=== PATIENT | male | born 1995 | race Caucasian/White ===

== ENCOUNTER 2019-10-31 12:32 | Inpatient (IN) | payer BC, OTHER ==
--- NOTE | 2019-10-31 12:59 | ED ---
General Adult HPI - General Chief complaint: Psychiatric Symptoms Stated complaint: mental health Time Seen by Provider: 10/31/19 12:35 Source: patient, police, EMS, RN notes reviewed, old records reviewed Mode of arrival: EMS Limitations: no limitations - History of Present Illness Initial comments: This is a 24-year-old male who presents emergency Department in the custody of the lesley. According to the patient made some welsh to the parents about potentially harming some other people if they had a PPO against him patient denies wanting to kill anyone he does state he wanted to punch anyone if they came to the house and try to make him leave.. Patient states he is not suicidal or homicidal. Patient denies any physical complaints today. Patient states he does to methamphetamine occasionally but does not drink and does do marijuana occasionally. - Related Data Home Medications Medication Instructions Recorded Confirmed No Known Home Medications 10/31/19 10/31/19 Allergies Allergy/AdvReac Type Severity Reaction Status Date / Time No Known Allergies Allergy Verified 10/31/19 14:19 Review of Systems ROS Statement: Those systems with pertinent positive or pertinent negative responses have been documented in the HPI. ROS Other: All systems not noted in ROS Statement are negative. Past Medical History Past Medical History: No Reported History History of Any Multi-Drug Resistant Organisms: None Reported Past Surgical History: Back Surgery Past Psychological History: No Psychological Hx Reported Smoking Status: Current every day smoker Past Alcohol Use History: None Reported Past Drug Use History: Marijuana, Methamphetamine General Exam - General Exam Comments Initial Comments: GENERAL: Patient is well-developed and well-nourished. Patient is nontoxic and well- hydrated and is in no acute distress ENT: Neck is soft and supple. No significant lymphadenopathy is noted. Oropharynx is clear. Moist mucous membranes. Neck has full range of motion without eliciting any pain. EYES: The sclera were anicteric and conjunctiva were pink and moist. Extraocular movements were intact and pupils were equal round and reactive to light. Eyelids were unremarkable. PULMONARY: Unlabored respirations. Good breath sounds bilaterally. No audible rales rhonchi or wheezing was noted. CARDIOVASCULAR: There is a regular rate and rhythm without any murmurs gallops or rubs. ABDOMEN: Soft and nontender with normal bowel sounds. SKIN: Skin is clear with no lesions or rashes and otherwise unremarkable. NEUROLOGIC: Patient is alert and oriented x3. Cranial nerves II through XII are grossly intact. Motor and sensory are also intact. Normal speech, volume and content. Symmetrical smile. MUSCULOSKELETAL: Normal extremities with adequate strength and full range of motion. LYMPHATICS: No significant lymphadenopathy is noted PSYCHIATRIC: Patient denies suicidal or homicidal ideations. Patient states he was in an argument with his parents and mom had threatened to take away his dog and kicked multiple house in the argument escalated. There was no physical violence according to the patient. Limitations: no limitations Course Vital Signs 10/31/19 12:34 Temperature 98.0 F Pulse Rate 110 H Respiratory 20 Rate Blood Pressure 151/84 O2 Sat by Pulse 100 Oximetry Medical Decision Making - Medical Decision Making Patient's parents came in and indicated that patient had talked about hanging himself and he also stated that if the please ever came he would start stacking of their bodies. Patient also told the friend that he was given kill himself. Patient's petition by his parents I filled out a clinical certification to keep the patient - Lab Data Lab Results 10/31/19 Range/Units 14:22 Urine Opiates Screen Not Detected (NotDetected) Ur Oxycodone Screen Not Detected (NotDetected) Urine Methadone Screen Not Detected (NotDetected) Ur Propoxyphene Screen Not Detected (NotDetected) Ur Barbiturates Screen Not Detected (NotDetected) U Tricyclic Antidepress Not Detected (NotDetected) Ur Phencyclidine Scrn Not Detected (NotDetected) Ur Amphetamines Screen Detected H (NotDetected) U Methamphetamines Scrn Not Detected (NotDetected) U Benzodiazepines Scrn Not Detected (NotDetected) Urine Cocaine Screen Not Detected (NotDetected) U Marijuana (THC) Screen Detected H (NotDetected) Disposition Clinical Impression: Suicidal ideation, Depression, Methamphetamine abuse Disposition: ADMITTED IP TO THIS HOSP Referrals: None,Stated [Primary Care Provider] - 1-2 days Time of Disposition: 16:44
[2019-10-31 14:43] LABS: Amphetamine Screen,Urine Detected (NotDetected); Barbiturate Screen,Urine Not Detected (NotDetected); Benzodiazepines Screen,Urine Not Detected (NotDetected); Cocaine Screen,Urine Not Detected (NotDetected); Methadone Screen, Urine Not Detected (NotDetected); Opiate Screen,Urine Not Detected (NotDetected); Oxycodone Screen, Urine Not Detected (NotDetected); Phencyclidine Screen,Urine Not Detected (NotDetected); Tricyclic Antidepressant,Urine Not Detected (NotDetected); Urn Cannabinoid Scrn Detected (NotDetected)
[2019-10-31] MEDS ORDERED: ACETAMINOPHEN TAB 325 MG TAB PO PRN (22:27)
[2019-10-31] MEDS ORDERED: MAGNESIUM HYDROXIDE 2,400 MG/10 ML CUP PO PRN (22:27)
[2019-10-31] MEDS ORDERED: LORazepam 1 MG TAB PO PRN (22:27)
[2019-10-31] MEDS ORDERED: MAG HYDROX/AL HYDROX/SIMETH 30 ML CUP PO PRN (22:27)
[2019-10-31] MEDS ORDERED: ZIPRASIDONE 20 MG VIAL IM PRN (22:27)
[2019-10-31] MEDS ORDERED: LORazepam 2 MG/ML INJ IM PRN (22:30)
[2019-11-01] MEDS: NICOTINE 14MG/24HR PATCH TRANSDERM SCH ×2 (10:09→16:46)
--- NOTE | 2019-11-01 13:48 | P.HP ---
Psychiatric H&P - . H&P Date: 11/01/19 History & Physical: DATE OF SERVICE: [11/01/2019] IDENTIFYING DATA: This patient is a [24]-year-old single male who was admitted to the mental health unit through []. HISTORY OF PRESENT ILLNESS: The patient [facility] with [facility] According to the Laboratory Aide patient made some welsh to the parents about potentially harming some other people if they had a PPO against him patient denies wanting to kill anyone he does state he wanted to punch anyone if they came to the house and try to make him leave.. Patient states he is not suicidal or homicidal. Patient denies any physical complaints today. Patient states he does to methamphetamine occasionally but does not drink and does do marijuana occasionally. The patient is a poor historian and was very emotional during the interview. The patient reports that he wants to get out of the hospital because he does not think that he needs to be here. The patient reports that he and his mother had an argument prior to her calling the assistant manager/embalmer. The patient reports that his mother has a problem with them doing drugs. The patient reports that the mother told him to get out of the house. The patient reports that he wanted to go not leave without his dog and things got escalated. The patient reports that he made threatening remarks and the mother called the assistant manager/embalmer then brought him to the hospital. The patient reports that he uses methamphetamines and marijuana. The patient reports multiple stresses in his life right now. The patient reports that he has witnessed a lot of tragedies and traumas. The patient reports fair sleep but reports occasional nightmares. The patient denies any auditory or visual hallucinations. He denies any active suicidal or homicidal ideations at this time. The patient was focused on getting discharged and was threatening litigation. PAST PSYCHIATRIC HISTORY: Past hospitalizations: None Suicidal attempts: Denies Medications: None PAST MEDICAL HISTORY: [Denies]. ALLERGIES: [No known drug allergies]. CHEMICAL DEPENDENCY HISTORY: []. Alcohol: Denies Marijuana: Admits to using Marijuana Cocaine: Unknown Opioids: Unknown Other: Metamphitamines Rehab: None FAMILY PSYCHIATRIC HISTORY: [Unknown]. FAMILY CHEMICAL DEPENDENCY HISTORY:[Unknown]. LEGAL HISTORY: [Denies]. SOCIAL HISTORY: [The patient lives at home with his parents. 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 No further information was available.]. MENTAL STATUS EXAM: General Appearance: Patient appears to be stated age is alert, dressed in hospital gown with poor grooming. The patient had poor eye contact.. Behavior: Patient is seated comfortably but appears that easily agitated and irritable. Speech: Patient's speech is rapid and pressured. He is focused on getting discharged and is difficult to be redirected. Mood/Affect: Patient reports their mood/anxiety is angry, affect is constricted Suicidality/Homicidality: Patient denies any active suicidal or homicidal ideations.. Perceptions: Patient denies any auditory or visual hallucinations. Though content/process: Reports no delusional thinking or paranoia Memory and concentration: AOX3, grossly intact for the purposes of this session. Judgment and insight: Limited . Aller Allergy/AdvReac Type Severity Reaction Status Date / Time No Known Allergies Allergy Verified 10/31/19 14:19 Vital Signs Temp 98.1 F 11/01/19 06:58 Pulse 91 11/01/19 06:58 Resp 20 11/01/19 06:58 BP 118/61 11/01/19 06:58 Pulse Ox 100 10/31/19 12:34 Intake & Output 10/31/19 11/01/19 11/01/19 18:59 06:59 18:59 Weight 68.039 kg Laboratory Last Values Urine Opiates Screen Not Detected (NotDetected) 10/31/19 14:22 Ur Oxycodone Screen Not Detected (NotDetected) 10/31/19 14:22 Urine Methadone Screen Not Detected (NotDetected) 10/31/19 14:22 Ur Propoxyphene Screen Not Detected (NotDetected) 10/31/19 14:22 Ur Barbiturates Screen Not Detected (NotDetected) 10/31/19 14:22 U Tricyclic Antidepress Not Detected (NotDetected) 10/31/19 14:22 Ur Phencyclidine Scrn Not Detected (NotDetected) 10/31/19 14:22 Ur Amphetamines Screen Detected (NotDetected) H 10/31/19 14:22 U Methamphetamines Scrn Not Detected (NotDetected) 10/31/19 14:22 U Benzodiazepines Scrn Not Detected (NotDetected) 10/31/19 14:22 Urine Cocaine Screen Not Detected (NotDetected) 10/31/19 14:22 U Marijuana (THC) Screen Detected (NotDetected) H 10/31/19 14:22 11/01/19 10:45 11/01/19 13:40 Assessment and Plan Assessment: Major depressive disorder. Polysubstance abuse and dependence. Rule out bipolar disorder. Plan: Admit to the mental health unit. Clinical certificate was completed Continue inpatient level of care due to need for further stabilization on medications The patient was placed on suicidal precautions. Precautions: Continue 15 minutes check for safety. Consults internal medicine team for management of medical problems. Provide the patient individual, group therapy, substance use disorder counseling to give better insight and learn coping skills. Medications: The patient is refusing treatment. Discharge patient to OUTPATIENT services upon a stabilization Expected LOS: 3-5 days
--- NOTE | 2019-11-01 20:16 | P.HPMEDMHU ---
History of Present Illness H&P Date: 11/01/19 (consulted by Dr. Pickering ) Chief Complaint: consult for MHU HPI The patient is a 24-year-old male with a past medical history of smoking, polysubstance drug abuse with marijuana and amphetamines who is currently admitted to the mental health unit after being brought here under the custody of the local cosmetologist apprentice's. The patient denies any significant past medical history, he denies chest pain and denies shortness of breath, denies any wheezing or cough, denies subjective fevers chills or night sweats. The patient has no somatic complaints, denies any auditory or visual hallucinations. Review of Systems Pertinent positives per HPI all other review of systems are otherwise negative Past Medical History Past Medical History: No Reported History History of Any Multi-Drug Resistant Organisms: None Reported Past Surgical History: Back Surgery Past Psychological History: No Psychological Hx Reported Smoking Status: Current every day smoker Past Alcohol Use History: None Reported Past Drug Use History: Marijuana, Methamphetamine Medications and Allergies Home Medications Medication Instructions Recorded Confirmed Type No Known Home Medications 10/31/19 10/31/19 History Allergies Allergy/AdvReac Type Severity Reaction Status Date / Time No Known Allergies Allergy Verified 10/31/19 14:19 Physical Exam Vitals: Vital Signs Temp Pulse Resp BP 11/01/19 16:54 101 H 20 106/67 11/01/19 06:58 98.1 F 91 20 118/61 Constitutional: No acute distress, poor eye contact, appears disheveled unkempt, Eyes: Anicteric sclerae, moist conjunctiva, no lid-lag, PERRLA ENMT: NC/AT,Oropharynx clear, no erythema, exudates Neck:Supple, FROM, no masses, or JVD, No carotid bruits; No thyromegaly Lungs: Clear to auscultation, Clear to percussion, Normal respiratory effort, no accessory muscle use Cardiovascular: Heart regular in rate and rhythm, No murmurs, gallops, or rubs no peripheral edema Abdominal: Soft Nontender, nom distended, no guarding, no rebound or rigidity, Normoactive bowel sounds No hepatomegaly, No splenomegaly, No palpable mass No abdominal wall hernia noted Skin: Normal temperature, tone, texture, turgor, No induration No subcutaneous nodules, No rash, lesions, No ulcers Extremities:No digital cyanosis No clubbing, Pedal pulses intact and symmetrical Radial pulses intact and symmetrical Normal gait and station, No calf tenderness Psychiatric: Alert and oriented to person, place and time, denies suicidal or homicidal ideation denies A/V hallucinations Neuro: Muscles Strength 5/5 in all 4 extremities, Sensation to light touch grossly present throughout, Cranial nerves II-XII grossly intact. No focal sensory deficits Cranial Nerve Examination - Cranial Nerves Cranial Nerve II- Optic: Intact Cranial Nerve III- Oculomotor: Intact Cranial Nerve IV- Trochlear: Intact Cranial Nerve V- Trigeminal: Intact Cranial Nerve - Abducens: Intact Cranial Nerve VII- Facial: Intact Cranial Nerve VIII- Auditory: Intact Cranial Nerve IX- Glossopharyngeal: Intact Cranial Nerve X- Vagus: Intact Cranial Nerve XI- Accessory: Intact Cranial Nerve XII- Hypoglossal: Intact Assessment and Plan Assessment: Major depression Polysubstance drug abuse Smoker Plan: The patient is admitted to the acute inpatient psychiatry team will defer to primary service regarding ongoing psychotropic therapies and coordination cognitive behavioral therapy, the patient is a smoker and reports a history of polysubstance drug abuse which coordinates with his positive UDS for amphetamines and marijuana, the patient was counseled against drug use. Somatic the patient has no complaints warranting no further workup at this time. We'll plan to sign off on this patient today Further questions. His and his to contact the [place] emergency [facility] inpatient team, we appreciate the opportunity to be involved in this patient's ongoing care
[2019-11-02] MEDS: NICOTINE 14MG/24HR PATCH TRANSDERM SCH (10:15)
--- NOTE | 2019-11-02 11:41 | P.PN ---
Progress Note - Text Interval history: The patient is found in his room he follows me to an interview room. The patient was seen yesterday by the covering psychiatrist the evaluation was reviewed. The patient apparently made statements about harming others and possibly himself. He does have a history of using marijuana and methamphetamine. He indicates today that he is not suicidal or homicidal. He states he's never violent. Numerous times he states he wants to be with his dog as he misses him. A second clinical certificate was filed yesterday and we are awaiting the deferral conference which I believe is tomorrow. The patient did describe a history of depressive episodes in the past we discussed possibly using Lexapro to treat depression and he was agreeable. Mental status exam: The patient is a thin male appearing his stated age he has a disheveled appearance hygiene grooming impaired. 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 Eye contact is intermittent. He reports his mood is fine he is tearful throughout the session especially when talking about his dog. He reports no suicidal or homicidal ideation intent or plan. He is reporting no auditory or visual hallucination or any specific delusions. There is no observed evidence of psychosis. He is demonstrating no tangential thinking loose associations or flight of ideas. He does not appear hypomanic or manic. He is oriented to person place and date. Insight and judgment grossly intact but limited regarding his use of substances. He does not appreciate the risks in using methamphetamine. Plan: The patient is willing to start an antidepressant for depressive symptoms we chose Lexapro 10 mg daily. We discussed potential benefits and side effects of that medication as questions were answered. We will continue to monitor him for safety. He is instructed to participate in the milieu. We are awaiting the outcome of his deferral conference tomorrow. We will continue to monitor for safety.
[2019-11-02] MEDS: ESCITALOPRAM 10 MG TAB PO SCH (12:34)
[2019-11-03 07:01] VITALS: BP 115/57; PULSE 70; RESP 14; TEMP 97.7
[2019-11-03 08:54] LABS: Basophils % (A) 0 %; Eosinophils # (A) 0.3 k/uL (0-0.7); Eosinophils % (A) 4 %; HCT 45.8 % (39.0-53.0); Lymphocytes # (A) 3.3 k/uL (1.0-4.8); Lymphocytes % (A) 39 %; MCHC 32.7 g/dL (31.0-37.0); MCV 91.7 fL (80.0-100.0); Mean Platelet Volume 7.2; Monocytes # (A) 0.5 k/uL (0-1.0); Monocytes % (A) 6 %; Neutrophils % (A) 49 %; Platelet Count 315 k/uL (150-450); RBC 4.99 m/uL (4.30-5.90); RDW 12.2 % (11.5-15.5); WBC 8.3 k/uL (3.8-10.6)
[2019-11-03 09:07] LABS: ALT 23 U/L (4-49); AST 27 U/L (17-59); African American GFR (CKD) >90 (>60 ml/min/1.73 sqM); Albumin 4.4 g/dL (3.5-5.0); Alkaline Phosphatase 89 U/L (38-126); Anion Gap 11 mmol/L; Blood Urea Nitrogen 11 mg/dL (9-20); Calcium 9.8 mg/dL (8.4-10.2); Carbon Dioxide 29 mmol/L (22-30); Chloride 101 mmol/L (98-107); Cholesterol 142 mg/dL (<200); Glucose 102 mg/dL (74-99); HDL Cholesterol 39 mg/dL (40-60); LDL Cholesterol,Calculated 82 mg/dL (0-99); Non-African American GFR(CKD) >90 (>60 ml/min/1.73 sqM); Potassium 4.7 mmol/L (3.5-5.1); Sodium 141 mmol/L (137-145); Total Bilirubin 0.6 mg/dL (0.2-1.3); Total Protein 7.6 g/dL (6.3-8.2); Triglycerides 104 mg/dL (<150)
[2019-11-03] MEDS: ESCITALOPRAM 10 MG TAB PO SCH (09:20)
[2019-11-03] MEDS: NICOTINE 14MG/24HR PATCH TRANSDERM SCH (09:20)
--- NOTE | 2019-11-03 09:20 | P.DS ---
Providers Date of admission: 10/31/19 17:21 Expected date of discharge: 11/03/19 Attending physician: Blake Pickering Consults: 10/31/19 22:27 Consult Physician Routine Consulting Provider: Marla Physician Consult Reason/Comments: H&P and medical Do you want consulting provider notified?: Yes Primary care physician: Stated None - Discharge Diagnosis(es) (1) Major depressive disorder, recurrent severe without psychotic features Current Visit: Yes Status: Acute Priority: High (2) Methamphetamine use disorder, moderate Current Visit: Yes Status: Acute Priority: Medium (3) Cannabis use disorder, moderate, dependence Current Visit: Yes Status: Acute Priority: Medium Hospital Course: Brief summary of admission note: This patient is a 24-year-old single male who was admitted to the mental health unit on a petition stating that the patient made remarks about harming other people and himself. It is documented that there was a verbal altercation involving his parents. They demanded that he leave the house. He did not want to leave without his dog. Reportedly he made threatening statements towards them and himself. The police were called and he was brought to the hospital. The patient does have a history of using methamphetamine as well as cannabis. The psychiatrist covering evaluated the patient please refer to the psychiatric evaluation dated 11/01/2019. Summary of hospital course: The patient was admitted to the mental health unit involuntarily. A second clinical certificate was completed by the covering psychiatrist. He has a deferral conference today at 2 PM. I assumed care of the patient beginning yesterday. He reported having no suicidal or homicidal ideation intent or plan. Staff have reported no behavioral disturbances. The patient has been selectively involved in the milieu. During our conversation yesterday the patient revealed that he has struggled with episodes of depression throughout his life. We discussed starting Lexapro to treat those symptoms and he was agreeable. We discussed having him attend inpatient chemical dependency treatment but he does not wish to pursue that level of care. He is willing to go to outpatient mental health treatment for his mental health and substance use issues. He indicates that he did have a phone conversation with his parents last evening that went fairly well. He has decided that he will stay with a friend upon discharge however. He spontaneously describes several examples of future oriented thinking. He has demonstrated no evidence of psychosis hypomania or ange and demonstrates no agitation. Mental status exam: The patient is an alert male he is thin he is dressed in a sweater and sweat pants he has a disheveled appearance hygiene is adequate. Eye contact is intermittent. Speech is fluent spontaneous nonpressured. He indicates his mood is fine. Affect is constricted. He reports no hopelessness thinking he reports no suicidal ideation intent or plan. He reports no homicidal ideation intent or plan. Specifically he states he has no thoughts of harming his parents. He reports no auditory or visual hallucinations or any specific delusions, there is no observed evidence of psychosis. He demonstrates no tangential thinking loose associations or flight of ideas he does not appear to be hypomanic or manic. He demonstrates no verbal or physical aggressiveness. Insight and judgment grossly intact. He is oriented to person place and date. Impressions 1. Major depressive disorder recurrent severe without psychosis, methamphetamine use disorder moderate, cannabis use disorder moderate Plan: The patient will be discharged mental health unit today following his deferral conference. He indicates that he plans to sign the deferral and we discussed the details of that commitment. He will continue on Lexapro 10 mg daily. We addressed his questions regarding the medication area he is instructed to abstain from any use of alcohol marijuana or any illicit drug. We discussed that those substances can provoke mood symptoms and elevate his safety risk. He was offered the opportunity to participate in inpatient chemical dependency treatment but he defers. Social work will contact the patient's friend verify that he is able to stay at that residence. At this time there is no imminent safety risk the patient is appropriate for transition to outpatient care. He is instructed to return to the hospital with any acute safety concerns. Patient Condition at Discharge: Stable Plan - Discharge Summary New Discharge Prescriptions: New Nicotine 14Mg/24Hr Patch [Habitrol] 1 patch TRANSDERM DAILY #14 patch Escitalopram [Lexapro] 10 mg PO DAILY #30 tab Discharge Medication List Escitalopram [Lexapro] 10 mg PO DAILY #30 tab 11/03/19 [Rx] Nicotine 14Mg/24Hr Patch [Habitrol] 1 patch TRANSDERM DAILY #14 patch 11/03/19 [Rx] Follow up Appointment(s)/Referral(s): [facility] [Outside] - 11/08/19 1:30 pm (Praneeth Barkley) None,Stated [Primary Care Provider] - 1-2 days Activity/Diet/Wound Care/Special Instructions: Activity and diet as tolerated. Avoid the use of street drugs and alcohol. Take all medications as prescribed. When you are in need of refills on your medications please contact your medical provider and/or outpatient psychiatrist to have this done. Please go to scheduled outpatient appointment for aftercare treatment. If symptoms return or become worse, call the crisis line at and/or go to the nearest emergency room for evaluation.
[2019-11-03 20:33] LABS: Hemoglobin A1C 5.4 % (4.0-6.0)
== END 2019-11-03 13:30 | disposition home or self-care (01) | DRG 885 ==
LOC: EC 12:32 → 3MHU 17:21
PROVIDERS: ADMIT Psychiatry & Neurology Psychiatry; ATTEND Psychiatry & Neurology Psychiatry
DX: F33.2 Major depressive disorder, recurrent severe without psychotic features (principal); F15.20 Other stimulant dependence, uncomplicated; F12.20 Cannabis dependence, uncomplicated; F17.200 Nicotine dependence, unspecified, uncomplicated; Z79.899 Other long term (current) drug therapy
CPT/HCPCS: 80053; 80061; 80306; 82075; 83036; 84443; 85025; 99285

== ENCOUNTER 2024-01-26 11:41 | Day surgery (SDC) | payer OTHER ==
--- NOTE | 2024-01-24 13:03 | P.HPOR ---
History of Present Illness H&P Date: 01/24/24 Subjective: This is a 28 year old male that presents today for initial evaluation regarding a right middle finger injury that occurred 1 month prior while working on a truck. He states he has been unable to extend the finger after the laceration and never sought treatment. He also states he had a large abscess develope over the area of the cut that he was put on Bactrim for and it resolved. He denies any prior injury to this hand in the past. Physical Examination: RUE: AIN/PIN/Radial/Ulnar/Median motor intact. Radial/Ulnar/Median SILT. 2+/4 Radial/Ulnar pulses palpated. 5/5 APB, 5/5 FDI. Negative Finkelsteins, negative CMC grind, negative Durkan's compression. RMF resting in flexed position, unable to actively extend the finger against gravity. Healed 2cm transverse laceration over dorsum of MCP joint that is healed. Imaging: X-Rays of the right hand 3V taken in office today demonstrate no abnormality. Impression: 1.) Right middle finger extensor tendon injury at level of hand. Plan: Diagnosis and treatment options were discussed with the patient. I recommend surgical intervention with right middle finger extensor tendon repair with possible autograft due to the chronicity of his injury we discussed we may need to harvest his ipsilateral palmaris longus tendon for grafting if there is any tendon defect. Risks and benefits of surgery including bleeding, infection, damage to surrounding tissue, need for further surgery, residual numbness were discussed and the patient wished to go forward with surgery.The patient was agreeable with this plan. CC: Tristin Tesfaye Jr, D.O. -Perry Mckeon DO Orthopedic Hand/Upper Extremity Surgeon Past Medical History Past Medical History: No Reported History History of Any Multi-Drug Resistant Organisms: None Reported Past Surgical History: Back Surgery Past Psychological History: No Psychological Hx Reported Smoking Status: Current every day smoker Past Alcohol Use History: None Reported Past Drug Use History: Marijuana, Methamphetamine Medications and Allergies Home Medications Medication Instructions Recorded Confirmed Type Escitalopram [Lexapro] 10 mg PO DAILY #30 tab 11/03/19 Rx Nicotine 14Mg/24Hr Patch [Habitrol] 1 patch TRANSDERM DAILY #14 patch 11/03/19 Rx Allergies Allergy/AdvReac Type Severity Reaction Status Date / Time No Known Allergies Allergy Verified 05/01/23 15:56 Physical Examination Osteopathic Statement: *. No significant issues noted on an osteopathic structural exam other than those noted in the History and Physical/Consult.
[~2024-01-26 11:41] MED LIST: HYDROmorphone 0.5 MG/0.5 ML SYRINGE IVP PRN; fentaNYL (PF) 50 MCG/ML 2 ML AMP IV PRN
[2024-01-26] MEDS: LACTATED RINGERS 1,000 ML IV SCH (12:12)
[2024-01-26] MEDS: ONDANSETRON 4 MG/2 ML VIAL IVP ONE (12:15)
[2024-01-26] MEDS ORDERED: PROPOFOL 10 MG/ML 20 ML VIAL IV ONE (13:37)
[2024-01-26] MEDS ORDERED: LIDOCAINE 1% INJ 10MG/ML (20 ML MDV) ONE (13:37)
[2024-01-26] MEDS ORDERED: MIDAZOLAM 2 MG/2 ML VIAL ONE (13:37)
[2024-01-26] MEDS ORDERED: fentaNYL (PF) 50 MCG/ML 2 ML AMP ONE (13:37)
[2024-01-26] MEDS: BUPIVACAINE (PF) 0.5% 30 ML VIAL SQ ONE (14:21)
--- NOTE | 2024-01-26 14:35 | P.OP ---
Date of Procedure: 01/26/24 Preoperative Diagnosis: Right middle finger extensor tendon laceration, level of MCP. Postoperative Diagnosis: Right middle finger extensor tendon laceration, level of MCP. Procedure(s) Performed: Right middle finger extensor tendon laceration repair, level of MCP. Anesthesia: NAA Surgeon: Perry Mckeon Campground Caretaker #1: Onur Joy Estimated Blood Loss (ml): 0 Pathology: none sent Condition: stable Disposition: PACU Description of Procedure: This is a 28 year old male who presents today for surgical intervention for a right middle finger extensor tendon laceration. Risks and benefits of surgery were discussed with the patient including bleeding, damage to surrounding tissue, infection, need for further surgery as well as risks of anesthesia including pulmonary embolism and even and the patient wished to proceed with surgical intervention. The patient was seen in the pre-operative area by myself. Consent and H&P were completed and updated. The correct extremity was marked in the pre-operative area by myself and all other questions were a nswered. Operative Narrative: The patient was brought to the operating room by the department of anesthesia. They remained on the portable stretcher and a rolling hand table was brought to the side of the operative extremity. Pre-operative time out was performed indicating the correct patient, procedure and laterality. All in the room agreed. Pre-operative antibiotics were given prior to skin incision. The patient was then drifted off to sleep by the department of anesthesia. A nonsterile tourniquet was then applied to the operative extremity and the right upper extremity was then prepped and draped in normal sterile fashion. The operative extremity was the exsanguinated with an esmarch bandage and the tourniquet was inflated to 250mmHg. Previous laceration at level of the MCP was re-opened and extended proximally and distally with 15 blade scalpel. Blunt dissection was taken through subcutaneous tissues. There was abundant scar tissue present at the level of the MCP joint, this was excised. There was a 100% laceration of the EDC to the middle finger. Adhesions were spread and the tendon ends were able to glide smoothly and were easily approximated. A 4 strand crutiate core suture was used with 3-0 ethibond followed by interrupted 3-0 ethibond in figure of 8 fashion. The wound was then irrigated and skin closure was performed with 4-0 nylon. 10 cc's of 0.5% bupivicaine was injected into the subcuatneous tissues and the patient was placed in a extension splint. Tourniquet was let down and the hand had immediate perfusion. The patient was then woken by the department of anesthesia and transferred to PACU in stable condition. Onur BOWEN was present to assist in retraction and extensor tendon repair. Perry Mckeon D.O. Orthopedic Hand/Upper Extremity Surgeon
[2024-01-26] MEDS: IV FLUID CONTINUATION 1,000 ML IV ONE (14:47)
[2024-01-26 14:52] VITALS: RESP 16; TEMP 97
[2024-01-26 16:12] VITALS: BP 13/72; PULSE 76
== END 2024-01-26 15:50 | disposition home or self-care (01) ==
LOC: OR 11:41
PROVIDERS: ATTEND Orthopaedic Surgery Hand Surgery
DX: S66.322A Laceration of extensor muscle, fascia and tendon of right middle finger at wrist and hand level, initial encounter (principal); F17.200 Nicotine dependence, unspecified, uncomplicated; F12.90 Cannabis use, unspecified, uncomplicated; X58.XXXA Exposure to other specified factors, initial encounter; Z79.899 Other long term (current) drug therapy; Z98.890 Other specified postprocedural states
CPT/HCPCS: 26418; J2250; J0690; J2405; J2001; J3010; J2704; J0665

== ENCOUNTER 2024-03-01 08:11 | Day surgery (SDC) | payer OTHER ==
--- NOTE | 2024-02-24 12:41 | P.HPOR ---
History of Present Illness H&P Date: 02/24/24 Subjective: This is a 28 year old male that presents today for a post-operative visit after undergoing right middle finger extensor tendon repair on 01/26/24. He returned to work and has been working with the post operative cast on. The cast is quite disheveled and covered with grease and tape. Physical Examination: RUE: AIN/PIN/Radial/Ulnar/Median motor intact. Radial/Ulnar/Median SILT. 2+/4 Radial/Ulnar pulses palpated. Extensor lag in middle finger. Unable to extend middle finger against gravity. Impression: 1.) S/P Right middle finger extensor tendon repair with subsequent re-rupture Plan: Diagnosis and treatment options were discussed with the patient. His repair does not seem to be intact with significant extension lag and minimal strength. Revision tendon repair vs observation was discussed and he wishes to go forward with revision right middle finger extensor tendon repair. Risks and benefits of surgery including bleeding, infection, damage to surrounding tissue, need for further surgery, residual numbness were discussed and the patient wished to go forward with surgery. We discussed importance of not using the hand and not bending the finger at the MCP joint post operatively. The patient is agreeable with this plan. -Perry Mckeon DO Orthopedic Hand/Upper Extremity Surgeon Past Medical History Past Medical History: GERD/Reflux History of Any Multi-Drug Resistant Organisms: MRSA Date of last positivie culture/infection: 2019 MDRO Source:: R arm Past Surgical History: Back Surgery, Ear Surgery, Orthopedic Surgery Additional Past Surgical History / Comment(s): R ear surgeries as a child, R hand injury. right middle finger tendon laceration repair 01/26/24 Past Anesthesia/Blood Transfusion Reactions: No Reported Reaction Smoking Status: Current every day smoker - Past Family History Father Family Medical History: CVA/TIA Additional Family Medical History / Comment(s): Stroke at age 72yrs. Mother Family Medical History: No Reported History Medications and Allergies Home Medications Medication Instructions Recorded Confirmed Type Ibuprofen [Motrin] 800 mg PO Q6H PRN 01/24/24 02/23/24 History HYDROcodone/APAP 5-325MG [[place] 1 tab PO Q4HR PRN 3 Days #18 tab 01/26/24 02/23/24 Rx 5-325] Allergies Allergy/AdvReac Type Severity Reaction Status Date / Time No Known Allergies Allergy Verified 02/23/24 14:08 Physical Examination Osteopathic Statement: *. No significant issues noted on an osteopathic structural exam other than those noted in the History and Physical/Consult.
[2024-02-29 08:47] VITALS: BMI 29.6
[~2024-03-01 08:11] MED LIST changes: +DEXAMETHASONE SOD PHOSPHATE 4 MG/ML 1 ML VIAL IV ONE; +LACTATED RINGERS 1,000 ML IV SCH; +ONDANSETRON 4 MG/2 ML VIAL IVP ONE; -fentaNYL (PF) 50 MCG/ML 2 ML AMP IV PRN
[2024-03-01] MEDS: LACTATED RINGERS 1,000 ML IV ONE (08:42)
[2024-03-01] MEDS: ONDANSETRON 4 MG/2 ML VIAL ONE (08:47)
[2024-03-01] MEDS: DEXAMETHASONE SOD PHOSPHATE 4 MG/ML 1 ML VIAL IVP ONE (08:53)
[2024-03-01] MEDS: BUPIVACAINE (PF) 0.5% 30 ML VIAL SQ ONE ×2 (09:05→10:01)
[2024-03-01] MEDS ORDERED: LIDOCAINE 1% INJ 10MG/ML (20 ML MDV) ONE (09:07)
[2024-03-01] MEDS ORDERED: MIDAZOLAM 2 MG/2 ML VIAL ONE (09:07)
[2024-03-01] MEDS ORDERED: PROPOFOL 10 MG/ML 20 ML VIAL IV ONE (09:07)
[2024-03-01] MEDS ORDERED: fentaNYL (PF) 50 MCG/ML 2 ML AMP ONE (09:07)
[2024-03-01 10:41] VITALS: TEMP 97
--- NOTE | 2024-03-01 11:29 | P.OP ---
Date of Procedure: 03/01/24 Preoperative Diagnosis: Right middle finger extensor tendon laceration repair Postoperative Diagnosis: Right middle finger extensor tendon laceration repair Procedure(s) Performed: Revision right middle finger extensor tendon laceration repair, zone V Anesthesia: RADU Surgeon: Perry Mckeon Flasher Adjuster #1: Rodney Quinonez Estimated Blood Loss (ml): 0 Pathology: none sent Condition: stable Disposition: PACU Description of Procedure: This is a 28 year old male who presents today for surgical intervention for a revision right middle finger extensor tendon laceration after undergoing previous extensor tendon repair 1 month prior after his repair was found to be ruptured at post operative follow up. Risks and benefits of surgery were discussed with the patient including bleeding, damage to surrounding tissue, infection, need for further surgery as well as risks of anesthesia including pulmonary embolism and even and the patient wished to proceed with surgical intervention. The patient was seen in the pre-operative area by myself. Consent and H&P were completed and updated. The correct extremity was marked in the pre-operative area by myself and all other questions were answered. Operative Narrative: The patient was brought to the operating room by the department of anesthesia. They remained on the portable stretcher and a rolling hand table was brought to the side of the operative extremity. Pre-operative time out was performed indicating the correct patient, procedure and laterality. All in the room agreed. Pre-operative antibiotics were given prior to skin incision. The patient was then drifted off to sleep by the department of anesthesia. A nonsterile tourniquet was then applied to the operative extremity and the right upper extremity was then prepped and draped in normal sterile fashion. The operative extremity was the exsanguinated with an esmarch bandage and the tourniquet was inflated to 250mmHg. Previous incision at level of the MCP was re-opened and extended proximally and distally with 15 blade scalpel. Blunt dissection was taken through subcutaneous tissues. There was abundant scar tissue present at the level of the MCP joint, this was excised. There was a 100% re-tear of the EDC to the middle finger. Adhesions were spread and the tendon ends were able to glide smoothly and were easily approximated after scarred ends were trimmed and old suture was removed. A 4 strand crutiate core suture was used with 2-0 ethibond followed by a locking running 2-0 ethibond in figure of 8 fashion followed by 4-0 prolene overstitch. The wound was then irrigated and skin closure was performed with 4-0 nylon. 10cc's of 0.5% bupivicaine was injected into the subcuatneous tissues and the patient was placed in a extension splint. Tourniquet was let down and the hand had immediate perfusion. The patient was then woken by the department of anesthesia and transferred to PACU in stable condition. Rodney BOWEN was present to assist in retraction and extensor tendon repair. Perry Mckeon D.O. Orthopedic Hand/Upper Extremity Surgeon
[2024-03-01 11:36] VITALS: BP 121/77; PULSE 76
[2024-03-01 11:37] VITALS: RESP 18
== END 2024-03-01 11:34 | disposition home or self-care (01) ==
LOC: OR 08:11
PROVIDERS: ATTEND Orthopaedic Surgery Hand Surgery
DX: S66.322A Laceration of extensor muscle, fascia and tendon of right middle finger at wrist and hand level, initial encounter (principal); K21.9 Gastro-esophageal reflux disease without esophagitis; F17.200 Nicotine dependence, unspecified, uncomplicated; Z98.890 Other specified postprocedural states; Z82.3 Family history of stroke; Z79.899 Other long term (current) drug therapy; F32.A Depression, unspecified; X58.XXXA Exposure to other specified factors, initial encounter
CPT/HCPCS: 26418; J2250; J1100; J0690; J2405; J2001; J3010; J2704; J0665